=== PATIENT | female | born 1990 | race American Indian/Alaskan Native ===

== ENCOUNTER 2018-06-21 15:58 | Outpatient (CLI) | payer MEDICAID ==
--- NOTE | 2018-06-21 21:12 | Magnetic Resonance Report ---
FINAL REPORT PROCEDURE: MR PELVIS WO/W CON TECHNIQUE: Magnetic resonance imaging of the pelvis was performed using standard sequences before and after the IV injection of paramagnetic contrast. CPT 59315 HISTORY: PELVIC PAIN COMPARISON: No prior studies are available for comparison. FINDINGS: Uterus: Normal. Ovaries and adnexae: There is a 2.2 centimeters cyst in the right ovary. Bladder: Normal. Pelvic musculature: Normal. Free fluid: There is minimal free pelvic fluid. Adenopathy or mass: None. There is edema and enhancement of the left sacral ala and iliac wing along the sacroiliac joint. Sacroiliac joint itself is intact. Possibility of nondisplaced bony injury or early sacroiliitis not excluded. If indicated, CT or nuclear medicine bone scan may be helpful. IMPRESSION: There is a right ovarian cyst. There is nonspecific free pelvic fluid. There is no solid pelvic mass or abscess. Bony and soft tissue structures are within normal limits. There is edema and enhancement of the left sacral ala and iliac wing along the left sacroiliac joint. The left joint itself is intact. Possibility of nondisplaced bony injury or early sacroiliitis not excluded. If indicated, CT or nuclear medicine bone scan may be helpful.
== END 2018-06-21 15:59 | disposition home or self-care (01) ==
LOC: MRI 15:58
PROVIDERS: ATTEND Obstetrics & Gynecology
DX: N83.291 Other ovarian cyst, right side (principal)
CPT/HCPCS: 72197; A9577

== ENCOUNTER 2019-07-22 22:07 | Emergency (ER) | payer MEDICAID ==
[2019-07-22 22:23] VITALS: BP 139/75
--- NOTE | 2019-07-22 22:23 | Event Note ---
ED Screening Note Date of service: 07/22/19 Time: 22:22 ED Screening Note: presents with sore throat and fever x 3 days This initial assessment/diagnostic orders/clinical plan/treatment(s) is/are subject to change based on patients health status, clinical progression and re- assessment by fellow clinical providers in the ED. Further treatment and workup at subsequent clinical providers discretion. Patient/guardian urged not to elope from the ED as their condition may be serious if not clinically assessed and managed. Initial orders include: rapid strep
[2019-07-23] MEDS ORDERED: TRIMOX PO ONE (00:56)
[2019-07-23] MEDS ORDERED: IBUPROFEN PO ONE (00:56)
[2019-07-23] MEDS ORDERED: DECADRON IM ONE (00:56)
--- NOTE | 2019-07-23 00:56 | Emergency Department Report ---
Minor Respiratory - HPI Chief Complaint: Sore Throat Stated Complaint: THROAT PAIN Time Seen by Provider: 07/22/19 22:21 Duration: 2 Days Pain Location: Throat Severity: mild Minor Respiratory: Yes Sore Throat, Yes Able to Tolerate Fluids, Yes Fever, No Rhinorrhea, No Ear Pain, No Cough, No Sick Contacts, No Hemoptysis, No Chest Pain, No Shortness of Breath Other History: 29 YO TO ER WITH SORE THROAT. FEVER ON ARRIVAL. TAKING PO. NON TOXIC. AMBULATORY ED Review of Systems ROS: Stated complaint: THROAT PAIN Other details as noted in HPI Comment: All other systems reviewed and negative ED Past Medical Hx - Past Medical History Previous Medical History?: No - Surgical History Past Surgical History?: Yes Additional Surgical History: c-sec - Family History Family history: no significant - Social History Smoking Status: Never Smoker Substance Use Type: None - Medications Home Medications: Home Medications Medication Instructions Recorded Confirmed Last Taken Type Amoxicillin [Trimox CAP] 500 mg PO TID #30 capsule 07/23/19 Unknown Rx Minor Respiratory Exam - Exam General: Vital signs noted. No distress. Alert and acting appropriately. HEENT: Yes Pharyngeal Erythema, Yes Pharyngeal Exudates, Yes Moist Mucous Membranes, No Rhinorrhea, No Conjuctival Injection Ear: Neither TM Bulge, Neither TM Erythema, Neither EAC Pain, Neither EAC Discharge Neck: Yes Supple, No Adenopathy Lungs: Yes Good Air Exchange, No Wheezes Heart: Yes Regular Abdomen: No Tenderness Skin: No Rash Neurologic: Alert and oriented, no deficits. Musculoskeletal: Unremarkable. ED Course Vital Signs 07/22/19 22:21 Temperature 100.6 F H Pulse Rate 104 H Respiratory 18 Rate Blood Pressure 139/75 O2 Sat by Pulse 98 Oximetry ED Medical Decision Making - Medical Decision Making NO ABSCESS NO LUDWIGS ABC INTACT VSS TAKING PO PHONATING WITH DIFFICULTY AMBULATORY EXUDATES B TONSILS MEDICATED IN ER DC HOME WITH DC PLAN OF CARE AND PCP FOLLOW UP. Vital Signs 07/22/19 22:21 Temperature 100.6 F H Pulse Rate 104 H Respiratory 18 Rate Blood Pressure 139/75 O2 Sat by Pulse 98 Oximetry - Differential Diagnosis SIMPLE URI Critical care attestation.: If time is entered above; I have spent that time in minutes in the direct care of this critically ill patient, excluding procedure time. ED Disposition Clinical Impression: Acute pharyngitis Disposition: DC TO HOME OR SELFCARE Is pt being admited?: No Does the pt Need Aspirin: No Condition: Stable Instructions: Pharyngitis (ED) Additional Instructions: HYDRATE WELL WITH WATER MOTRIN AND TYLENOL FOR PAIN OR FEVER MED ORDERED TODAY UNTIL GONE FOLLOW UP PCP AT THE END OF THE WEEK TO BE SURE YOU ARE GETTING BETTER REFERRAL BELOW Referrals: [facility] [Outside] - 3-5 Days Time of Disposition: 01:08
== END 2019-07-23 01:40 | disposition home or self-care (01) ==
LOC: ED 22:07
DX: J02.9 Acute pharyngitis, unspecified (principal); Z79.899 Other long term (current) drug therapy
CPT/HCPCS: 87116; 87430; 96372; 99283; J1100

== ENCOUNTER 2019-09-27 19:02 | Emergency (ER) | payer SELFPAY ==
[2019-09-27 19:21] VITALS: BP 124/75
--- NOTE | 2019-09-27 19:41 | Event Note ---
ED Screening Note Date of service: 09/27/19 Time: 19:38 ED Screening Note: This is a 29 y.o. F. that presents to the ER with sore throat and abscess to right axilla. Reports sore throat for 3 days and abscess for 1 week. + cough, sore throat, Took nyquil once. This initial assessment/diagnostic orders/clinical plan/treatment(s) is/are subject to change based on patients health status, clinical progression and re- assessment by fellow clinical providers in the ED. Further treatment and workup at subsequent clinical providers discretion. Patient/guardian urged not to elope from the ED as their condition may be serious if not clinically assessed and managed. Initial orders include: ACC for further evaluation. Rapid strep
--- NOTE | 2019-09-27 20:49 | Emergency Department Report ---
HPI - General Chief Complaint: Sore Throat Time Seen by Provider: 09/27/19 19:38 - HPI HPI: This is a 29-year-old female here report that she is having sore throat 3 days white spots to the back of her throat and she gets strep throat a couple times a year. She also reports that she has hydradenitis and that she has a flare up with no drainage. She reports pain to throat and right arm. At 4 out of 10 and sore. Pain to throat is worse with swallowing to arm worse with palpation. She reports some chills but no temperature was taken at home. She says she took some [id number]-[id number] medications home with help her pain a little. Patient says she does have access to primary care and will be able to follow up with [employer] supervisor and primary care. Denies any drooling, cough, difficulty swallowing, hoarseness, wheezing, shortness of breath, neck pain or stiffness, and reports that she has headache on and off that started today. Denies any jax st pain or back pain. ED Past Medical Hx - Past Medical History Previous Medical History?: Yes Additional medical history: hydradenitis - Surgical History Past Surgical History?: Yes Additional Surgical History: c-sec, cerclage - Family History Family history: no significant - Social History Smoking Status: Never Smoker Substance Use Type: None - Medications Home Medications: Home Medications Medication Instructions Recorded Confirmed Last Taken Type Amoxicillin [Trimox CAP] 500 mg PO TID #30 capsule 07/23/19 Unknown Rx Clindamycin [Clindamycin CAP] 300 mg PO Q8H 10 Days #30 cap 09/27/19 Unknown Rx Ibuprofen [Motrin] 800 mg PO Q8HR PRN #12 tablet 09/27/19 Unknown Rx ED Review of Systems ROS: Stated complaint: SORE THROAT/LUMP UNDER (R) ARM Other details as noted in HPI Constitutional: chills. denies: weakness Eyes: denies: eye discharge ENT: throat pain. denies: ear pain, dental pain, congestion Respiratory: denies: cough, shortness of breath, SOB with exertion, SOB at rest, stridor, wheezing Cardiovascular: denies: chest pain, palpitations, dyspnea on exertion, edema, syncope, paroxysmal nocturnal dyspnea Gastrointestinal: denies: abdominal pain, nausea, vomiting Musculoskeletal: denies: back pain, joint swelling, arthralgia Skin: other (says to right armpit). denies: rash Neurological: headache. denies: numbness, paresthesias, abnormal gait, vertigo Physical Exam - Physical Exam Vital Signs: Vital Signs 09/27/19 19:11 Temperature 99.2 F Pulse Rate 101 H Respiratory 18 Rate Blood Pressure 124/75 O2 Sat by Pulse 98 Oximetry Vital Signs 09/27/19 09/27/19 19:11 20:49 Temperature 99.2 F 98.9 F Pulse Rate 101 H 94 H Respiratory 18 Rate Blood Pressure 124/75 O2 Sat by Pulse 98 Oximetry General: This is a 29-year-old female well-nourished well-developed and nontoxic in appearance. Physical Exam: Head: Normocephalic atraumatic. Mouth: Oral mucosa moist, tongue is normal, uvula is midline, no TIE MAKER or drooling, oral airways patent and uvula is midline. Noted pharyngeal erythema with white exudates. Oral airways patent and tongue is normal Lungs: Clear to auscultated bilaterally, no rhonchi wheezes or rales. No use of accessory muscles. Neck: Supple, no tracheal deviation. No C-spine tenderness and full range of motion. Negative stridor and negative crepitus. Positive anterior cervical chain lymphadenopathy CV: S1, S2. Regular rate mild tachycardia 101 Abdomen: Nontender to palpate in all quadrants, normal bowel sounds in all quadrants. No distention. Eyes: Bilateral pupils equal and reactive to light, conjunctival injection or icterus. Bilateral EOM intact Face: Exam except for rash. No bony abnormality noted Skin: Patient with normal skin on exam except she has high jejunitis area to her right arm pain with minimal induration and nonfluctuant. No erythema but tender to palpate and proximal right axilla with small opening. Extremity: No cce. + 2 pulses in all extremities, no neurovascular compromise. Mood: Normal mood and behavior Neurological: No focal neurological deficit. She is able to ambulate without any difficulties. Normal gait, speech is clear fluid, she is alert and oriented 3, no motor or sensory deficits. Body Four View: 1 - Patient with multiple coalescent area to right arm pain with minimal darlin ration tender to palpate without any erythema or proximal end of right axilla with small opening. No fluctuance noted. ED Course Vital Signs 09/27/19 19:11 Temperature 99.2 F Pulse Rate 101 H Respiratory 18 Rate Blood Pressure 124/75 O2 Sat by Pulse 98 Oximetry Vital Signs 09/27/19 09/27/19 19:11 20:49 Temperature 99.2 F 98.9 F Pulse Rate 101 H 94 H Respiratory 18 Rate Blood Pressure 124/75 O2 Sat by Pulse 98 Oximetry - Reevaluation(s) Reevaluation #1: 09/27/19 21:22 Patient was given clindamycin 600 mg by mouth this will cover his I Hidradenitis and strep throat. Based on, Centor criteria patient with headache, fever, enlarged lymph nodes and oropharynx erythema with exudate. She was also given Motrin 800 mg for pain with relief and her vital signs are improved. ED Medical Decision Making - Medical Decision Making This is a 29-year-old female found to have exudative pharyngitis and based on Centor criteria will be treated for strep. She is also found to have chronic history of Hidradenitis which she says she has a flareup but she does not have any fluctuance to right axilla. She was started on clindamycin which will cover both and given Motrin for pain. 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 She reports that her tet anus vaccine is up-to-date at about 3 years. I instructed her to apply warm compresses to right axilla 3-4 times a day and she has opening at the proximal end so once areas is soft they will drain. She voiced understanding of diagnosis and treatment plan and need to follow up with carbon paper coating supervisor and primary care. Critical care attestation.: If time is entered above; I have spent that time in minutes in the direct care of this critically ill patient, excluding procedure time. ED Disposition Clinical Impression: Exudative pharyngitis, Right axillary hidradenitis Disposition: TO HOME OR SELFCARE Is pt being admited?: No Does the pt Need Aspirin: No Condition: Stable Instructions: Strep Throat (ED) Additional Instructions: Please apply warm compresses to area to right at the last 3-4 times a day to facilitate softening of affected area and drainage. Take medication as prescribed Please follow up with carbon paper coating supervisor and primary care as instructed If you condition worsens, return to the emergency room Increase your fluid intake to 2-3 L of fluid daily and practice good hand hygiene Prescriptions: Clindamycin [Clindamycin CAP] 300 mg PO Q8H 10 Days #30 cap Ibuprofen [Motrin] 800 mg PO Q8HR PRN #12 tablet PRN Reason: PAIN Referrals: PRIMARY CARE, [Primary Care Provider] - 3-5 Days Forms: Work/School Release Form(ED)
[2019-09-27] MEDS ORDERED: IBUPROFEN 800 MG TAB PO ONE (20:51)
[2019-09-27] MEDS ORDERED: CLINDAMYCIN 300 MG CAP PO ONE (20:51)
== END 2019-09-27 21:57 | disposition home or self-care (01) ==
LOC: ED 19:02
DX: L73.2 Hidradenitis suppurativa (principal); J02.9 Acute pharyngitis, unspecified; Z79.899 Other long term (current) drug therapy

== ENCOUNTER 2020-09-13 19:36 | Emergency (ER) | payer MEDICAID ==
[2020-09-13 20:44] VITALS: BP 120/63
--- NOTE | 2020-09-13 20:46 | Event Note ---
ED Screening Note Date of service: 09/13/20 Time: 20:45 ED Screening Note: Pt c/o SOB and fatigue x 3 weeks denies cough or fever This initial assessment/diagnostic orders/clinical plan/treatment(s) is/are subject to change based on patients health status, clinical progression and re-assessment by fellow clinical providers in the ED. Further treatment and workup at subsequent clinical providers discretion. Patient/guardian urged not to elope from the ED as their condition may be serious if not clinically assessed and managed. Initial orders include: CXR labs
[2020-09-13 21:02] LABS: Basophils # (Auto) 0.1 K/mm3 (0.0-0.1); Basophils % (Auto) 0.7 % (0.0-1.8); Eosinophils # (Auto) 0.2 K/mm3 (0.0-0.4); Eosinophils % (Auto) 2.3 % (0.0-4.3); Hematocrit 36.6 % (30.3-42.9); Hemoglobin 12.5 gm/dl (10.1-14.3); Lymphocytes # (Auto) 3.5 K/mm3 (1.2-5.4); Lymphocytes % (Auto) 32.1 % (13.4-35.0); Mean Corpuscular HGB Conc 34 % (30-34); Mean Corpuscular Volume 88 fl (79-97); Monocytes # (Auto) 0.9 K/mm3 (0.0-0.8); Monocytes % (Auto) 8.7 % (0.0-7.3); Platelet Count 334 K/mm3 (140-440); Red Blood Count 4.15 M/mm3 (3.65-5.03); Red Cell Distribution Width 13.6 % (13.2-15.2)
[2020-09-13 21:18] LABS: Alanine Aminotransferase 22 units/L (7-56); Albumin 4.3 g/dL (3.9-5); Blood Urea Nitrogen 8 mg/dL (7-17); Calcium 9.8 mg/dL (8.4-10.2); Hemolysis Index 57
[2020-09-13 21:26] LABS: BUN/Creatinine Ratio 11
--- NOTE | 2020-09-13 22:09 | XRay Report ---
CHEST 2 VIEWS INDICATION / CLINICAL INFORMATION: shortness of breath. COMPARISON: 04/21/2020 FINDINGS: SUPPORT DEVICES: None. HEART / MEDIASTINUM: No significant abnormality. LUNGS / PLEURA: No significant pulmonary or pleural abnormality. No pneumothorax. ADDITIONAL FINDINGS: No significant additional findings. IMPRESSION: 1. No acute findings. Signer Name: Quinten Celestin MD Signed: 09/13/2020 10:04 PM Workstation Name: [id number]
--- NOTE | 2020-09-14 00:38 | Emergency Department Report ---
ED General Adult HPI - General Chief complaint: Dyspnea/Respdistress Stated complaint: SHORTNESS OF BREATH, BILATERAL EAR IRRITATION Time Seen by Provider: 09/13/20 20:44 Source: patient Mode of arrival: Ambulatory Limitations: No Limitations - History of Present Illness Initial comments: 30-year-old F [place] female no significant past medical history presents emerged department complaining of a 2 to 3-week history of head congestion ears feeling clogged nonproductive cough and new leave of shortness of breath over the past couple days with lethargy emergency department visit today. Was no palpitations. No hemoptysis no hematemesis no hematochezia. No fevers, chills, sweats no wheezing. No lower extremity swelling no exertional dyspnea no orthopnea. States that she notices more head pressure and lightheadedness when her ears feel for Pap Improves with: none Worsens with: none Associated Symptoms: denies other symptoms Treatments Prior to Arrival: none - Related Data Previous Rx's Medication Instructions Recorded Last Taken Type Amoxicillin [Trimox CAP] 500 mg PO TID #30 capsule 07/23/19 Unknown Rx Clindamycin [Clindamycin CAP] 300 mg PO Q8H 10 Days #30 cap 09/27/19 Unknown Rx Ibuprofen [Motrin] 800 mg PO Q8HR PRN #12 tablet 09/27/19 Unknown Rx Meclizine [Antivert] 25 mg PO TID PRN #30 tablet 04/21/20 Unknown Rx Benzonatate [Tessalon Perles] 100 mg PO Q8HR #20 capsule 09/14/20 Unknown Rx Fexofenadine/Pseudoephedrine 1 each PO BID #14 tab.er.12h 09/14/20 Unknown Rx [Liudmila-D 12 Hour Tablet] predniSONE [Deltasone] 20 mg PO QDAY #5 tab 09/14/20 Unknown Rx Allergies Allergy/AdvReac Type Severity Reaction Status Date / Time No Known Allergies Allergy Unverified 06/21/18 16:00 ED Review of Systems ROS: Stated complaint: SHORTNESS OF BREATH, BILATERAL EAR IRRITATION Other details as noted in HPI Comment: All other systems reviewed and negative ED Past Medical Hx - Past Medical History Previous Medical History?: No Additional medical history: hydradenitis - Surgical History Past Surgical History?: Yes Additional Surgical History: c-sec, cerclage - Social History Smoking Status: Never Smoker Substance Use Type: None - Medications Home Medications: Home Medications Medication Instructions Recorded Confirmed Last Taken Type Amoxicillin [Trimox CAP] 500 mg PO TID #30 capsule 07/23/19 Unknown Rx Clindamycin [Clindamycin CAP] 300 mg PO Q8H 10 Days #30 cap 09/27/19 Unknown Rx Ibuprofen [Motrin] 800 mg PO Q8HR PRN #12 tablet 09/27/19 Unknown Rx Meclizine [Antivert] 25 mg PO TID PRN #30 tablet 04/21/20 Unknown Rx Benzonatate [Tessalon Perles] 100 mg PO Q8HR #20 capsule 09/14/20 Unknown Rx Fexofenadine/Pseudoephedrine 1 each PO BID #14 tab.er.12h 09/14/20 Unknown Rx [Liudmila-D 12 Hour Tablet] predniSONE [Deltasone] 20 mg PO QDAY #5 tab 09/14/20 Unknown Rx ED Physical Exam - General Limitations: No Limitations General appearance: alert, in no apparent distress - Head Head exam: Present: atraumatic, normocephalic - Eye Eye exam: Present: normal appearance, PERRL, EOMI Pupils: Present: normal accommodation - ENT ENT exam: Present: mucous membranes moist. Absent: TM's normal bilaterally (Effusion behind the tympanic membranes bilaterally) - Neck Neck exam: Present: normal inspection - Respiratory Respiratory exam: Present: normal lung sounds bilaterally. Absent: respiratory distress - Cardiovascular Cardiovascular Exam: Present: regular rate, normal rhythm. Absent: systolic murmur, diastolic murmur, rubs, gallop - GI/Abdominal GI/Abdominal exam: Present: soft, normal bowel sounds - Extremities Exam Extremities exam: Present: normal inspection - Back Exam Back exam: Present: normal inspection - Neurological Exam Neurological exam: Present: alert, oriented X3 - Psychiatric Psychiatric exam: Present: normal affect, normal mood - Skin Skin exam: Present: warm, dry, intact, normal color. Absent: rash ED Course Vital Signs 09/13/20 20:41 Temperature 99.5 F Pulse Rate 69 Respiratory 18 Rate Blood Pressure 120/63 O2 Sat by Pulse 100 Oximetry ED Medical Decision Making - Lab Data Result diagrams: 09/13/20 20:53 09/13/20 20:53 Lab Results 10/19/20 10/19/20 10/19/20 Range/Units 20:53 20:53 20:53 WBC 10.8 (4.5-11.0) K/mm3 RBC 4.15 (3.65-5.03) M/mm3 Hgb 12.5 (10.1-14.3) gm/dl Hct 36.6 (30.3-42.9) % MCV 88 (79-97) fl MCH 30 (28-32) pg MCHC 34 (30-34) % RDW 13.6 (13.2-15.2) % Plt Count 334 (140-440) K/mm3 Lymph % (Auto) 32.1 (13.4-35.0) % [place] % (Auto) 8.7 H (0.0-7.3) % Eos % (Auto) 2.3 (0.0-4.3) % Baso % (Auto) 0.7 (0.0-1.8) % Lymph # (Auto) 3.5 (1.2-5.4) K/mm3 [place] # (Auto) 0.9 H (0.0-0.8) K/mm3 Eos # (Auto) 0.2 (0.0-0.4) K/mm3 Baso # (Auto) 0.1 (0.0-0.1) K/mm3 Seg Neutrophils % 56.2 (40.0-70.0) % Seg Neutrophils # 6.1 (1.8-7.7) K/mm3 Sodium 142 (137-145) mmol/L Potassium 4.0 (3.6-5.0) mmol/L Chloride 104.5 (98-107) mmol/L Carbon Dioxide 25 (22-30) mmol/L Anion Gap 17 mmol/L BUN 8 (7-17) mg/dL Creatinine 0.7 (0.6-1.2) mg/dL Estimated GFR > 60 ml/min BUN/Creatinine Ratio 11 % Glucose 103 H (65-100) mg/dL Calcium 9.8 (8.4-10.2) mg/dL Total Bilirubin 0.30 (0.1-1.2) mg/dL AST 26 (5-40) units/L ALT 22 (7-56) units/L Alkaline Phosphatase 66 (35-129) units/L Total Protein 7.9 (6.3-8.2) g/dL Albumin 4.3 (3.9-5) g/dL Albumin/Globulin Ratio 1.2 % HCG, Qual Negative (Negative) - Radiology Data Radiology results: report reviewed [facility] [address] [place] [address] XRay Report Signed Patient: RUFINA THOMAS MR#: [id number] : 1990 Acct:[id number] Age/Sex: 30 / F ADM Date: 09/13/20 Loc: ED Attending Dr: Ordering Physician: DUNG KOENIG Date of Service: 09/13/20 Procedure(s): XR chest routine 2V Accession Number(s): [id number] cc: DUNG KOENIG Fluoro Time In Minutes: CHEST 2 VIEWS INDICATION / CLINICAL INFORMATION: shortness of breath. COMPARISON: 04/21/2020 FINDINGS: SUPPORT DEVICES: None. HEART / MEDIASTINUM: No significant abnormality. LUNGS / PLEURA: No significant pulmonary or pleural abnormality. No pneumothorax. ADDITIONAL FINDINGS: No significant additional findings. IMPRESSION: 1. No acute findings. Signer Name: Naomi Celestin MD Signed: 09/13/2020 10:04 PM Workstation Name: [id number] Transcribed By: RH Dictated By: NAOMI CELESTIN III Electronically Authenticated By: NAOMI CELESTIN III Signed Date/Time: 09/13/202203 DD/ 03 TD/TT: - Medical Decision Making This patient presents with dyspnea most likely secondary to allergies and bro nchitis. Differential diagnosis includes asthma, bronchitis, pleuritic pulmonary issue, viral syndrome. Presentation not consistent with acute cardiac etiologies to include ACS , CHF, pericardial effusion/tamponade. Presentation not consistent with acute respiratory etiologies to include acute pulmonary embolism ( PERC negative), pneumothorax, asthma, COPD exacerbation, infectious etiology such as pneumonia. The presentation also not consistent with known cardiopulmonary causes to include toxic syndrome, metabolic etiology such as acidemia or electrolyte derangements, sepsis, neurologic causes. Critical care attestation.: If time is entered above; I have spent that time in minutes in the direct care of this critically ill patient, excluding procedure time. ED Disposition Clinical Impression: Middle ear effusion, SOB (shortness of breath) Disposition: DC-01 TO HOME OR SELFCARE Is pt being admited?: No Does the pt Need Aspirin: No Condition: Stable Instructions: Dyspnea (ED), Dizziness (ED), Allergic Rhinitis (ED), Cold Symptoms (ED) Referrals: PRIMARY CARE,MD [Primary Care Provider] - 3-5 Days
== END 2020-09-14 01:10 | disposition home or self-care (01) ==
LOC: ED 19:36
DX: H93.8X3 Other specified disorders of ear, bilateral (principal); R06.02 Shortness of breath; Z79.899 Other long term (current) drug therapy; Z98.890 Other specified postprocedural states
CPT/HCPCS: 36415; 71046; 80053; 84703; 85025

== ENCOUNTER 2020-10-20 02:47 | Emergency (ER) | payer MEDICAID ==
--- NOTE | 2020-10-20 08:20 | Emergency Department Report ---
ED General Adult HPI - General Chief complaint: Headache Stated complaint: HEADACHE Time Seen by Provider: 10/20/20 08:17 Source: patient Mode of arrival: Ambulatory Limitations: No Limitations - History of Present Illness Initial comments: Patient is a 30-year-old female presents emergency room with complaints of left ear pressure last night. She denies any pain in the ear but just feels like there is pressure. She states that occasionally she gets a vertigo sensation. She states that she also has headaches. She states that she has had these sy mptoms intermittently since March 2020. She states that she frequently gets fluid buildup behind the ears and that is what causes her symptoms. She has not seen a ENT doctor or neurologist. She denies any nausea, vomiting, diarrhea, fever, numbness, weakness, vision changes, neck stiffness, any other symptoms. No past medical history. No allergies to medications. - Related Data Previous Rx's Medication Instructions Recorded Last Taken Type Amoxicillin [Trimox CAP] 500 mg PO TID #30 capsule 07/23/19 Unknown Rx Clindamycin [Clindamycin CAP] 300 mg PO Q8H 10 Days #30 cap 09/27/19 Unknown Rx Ibuprofen [Motrin] 800 mg PO Q8HR PRN #12 tablet 09/27/19 Unknown Rx Benzonatate [Tessalon Perles] 100 mg PO Q8HR #20 capsule 09/14/20 Unknown Rx Fexofenadine/Pseudoephedrine 1 each PO BID #14 tab.er.12h 09/14/20 Unknown Rx [Liudmila-D 12 Hour Tablet] predniSONE [Deltasone] 20 mg PO QDAY #5 tab 09/14/20 Unknown Rx Butalb/Acetaminophen/Caffeine 1 cap PO Q8HR PRN #10 cap 10/20/20 Unknown Rx [Fioricet 50-300-40 mg CAP] Meclizine [Antivert] 25 mg PO Q8HR PRN #30 tablet 10/20/20 Unknown Rx Prednisone [predniSONE 10 mg 10 mg PO .TAPER #1 tab.ds.pk 10/20/20 Unknown Rx (6-Day Pack, 21 Tabs)] Pseudoephedrine ER [Sudafed 12 Hr] 120 mg PO BID #14 tablet.er 10/20/20 Unknown Rx Allergies Allergy/AdvReac Type Severity Reaction Status Date / Time No Known Allergies Allergy Unverified 06/21/18 16:00 ED Review of Systems ROS: Stated complaint: HEADACHE Other details as noted in HPI Comment: All other systems reviewed and negative ED Past Medical Hx - Past Medical History Additional medical history: hydradenitis - Surgical History Additional Surgical History: c-sec, cerclage - Social History Smoking Status: Never Smoker - Medications Home Medications: Home Medications Medication Instructions Recorded Confirmed Last Taken Type Amoxicillin [Trimox CAP] 500 mg PO TID #30 capsule 07/23/19 Unknown Rx Clindamycin [Clindamycin CAP] 300 mg PO Q8H 10 Days #30 cap 09/27/19 Unknown Rx Ibuprofen [Motrin] 800 mg PO Q8HR PRN #12 tablet 09/27/19 Unknown Rx Benzonatate [Tessalon Perles] 100 mg PO Q8HR #20 capsule 09/14/20 Unknown Rx Fexofenadine/Pseudoephedrine 1 each PO BID #14 tab.er.12h 09/14/20 Unknown Rx [Liudmila-D 12 Hour Tablet] predniSONE [Deltasone] 20 mg PO QDAY #5 tab 09/14/20 Unknown Rx Butalb/Acetaminophen/Caffeine 1 cap PO Q8HR PRN #10 cap 10/20/20 Unknown Rx [Fioricet 50-300-40 mg CAP] Meclizine [Antivert] 25 mg PO Q8HR PRN #30 tablet 10/20/20 Unknown Rx Prednisone [predniSONE 10 mg 10 mg PO .TAPER #1 tab.ds.pk 10/20/20 Unknown Rx (6-Day Pack, 21 Tabs)] Pseudoephedrine ER [Sudafed 12 Hr] 120 mg PO BID #14 tablet.er 10/20/20 Unknown Rx ED Physical Exam - General Limitations: No Limitations General appearance: alert, in no apparent distress - Head Head exam: Present: atraumatic, normocephalic - Eye Eye exam: Present: normal appearance, PERRL, EOMI. Absent: scleral icterus, conjunctival injection, nystagmus, periorbital swelling, periorbital tenderness Pupils: Present: normal accommodation - ENT ENT exam: Present: normal orophraynx, mucous membranes moist, other (clear serous fluid behind the bilateral TMs, no erythema of the TMs or canals) - Neck Neck exam: Present: full ROM. Absent: meningismus - Respiratory Respiratory exam: Present: normal lung sounds bilaterally. Absent: respiratory distress, wheezes, rales, rhonchi, stridor, chest wall tenderness, accessory muscle use, decreased breath sounds, prolonged expiratory - Cardiovascular Cardiovascular Exam: Present: regular rate, normal rhythm, normal heart sounds. Absent: systolic murmur, diastolic murmur, rubs, gallop - Neurological Exam Neurological exam: Present: alert, oriented X3, CN II-XII intact, normal gait, other (normal finger to nose, normal heel to carlos, 5/5 muscle strength in the BUE/BLE, sensation intact throughout, no focal neuro deficit). Absent: motor sensory deficit - Psychiatric Psychiatric exam: Present: normal affect, normal mood - Skin Skin exam: Present: warm, dry, intact ED Course Vital Signs 10/20/20 10/20/20 03:03 08:52 Temperature 98.7 F 97.7 F Pulse Rate 86 80 Respiratory 18 16 Rate Blood Pressure 139/85 Blood Pressure 119/74 [Right] O2 Sat by Pulse 100 100 Oximetry ED Medical Decision Making - Medical Decision Making Patient is a 30-year-old female presents emergency room with complaints of left ear pressure last night. She denies any pain in the ear but just feels like there is pressure. She states that occasionally she gets a vertigo sensation. She states that she also has headaches. She states that she has had these symptoms intermittently since March 2020. She states that she frequently gets fluid buildup behind the ears and that is what causes her symptoms. She has not seen a ENT doctor or neurologist. She denies any nausea, vomiting, diarrhea, fever, numbness, weakness, vision changes, neck stiffness, any other symptoms. No past medical history. No allergies to medications. vss. on exam: clear serous fluid behind the bilateral TMs, no erythema of the TMs or canals. Examination appears consistent with serous otitis media, no signs of infection. She has no focal neuro deficits on exam. Symptoms are likely related to the serous otitis. Patient given prescription for meclizine, Sudafed, Fioricet, prednisone. Patient will be given ENT and neurology referral. Advised patient Please take medication as prescribed. Increase your water intake. Decrease your salt intake. Follow-up with your primary care doctor. Follow-up with the ENT doctor. Follow-up with a neurologist. Return to emergency room for new or worsening symptoms. Critical care attestation.: If time is entered above; I have spent that time in minutes in the direct care of this critically ill patient, excluding procedure time. ED Disposition Clinical Impression: Serous otitis media Qualifiers: Chronicity: acute Laterality: bilateral Recurrence: recurrent Qualified Code(s): H65.06 - Acute serous otitis media, recurrent, bilateral Headache Qualifiers: Headache type: unspecified Headache chronicity pattern: episodic headache Intractability: not intractable Qualified Code(s): R51.9 - Headache, unspecified Disposition: DC- TO HOME OR SELFCARE Is pt being admited?: No Does the pt Need Aspirin: No Condition: Stable Additional Instructions: Please take medication as prescribed. Increase your water intake. Decrease your salt intake. Follow-up with your primary care doctor. Follow-up with the ENT doctor. Follow-up with a neurologist. Return to emergency room for new or worsening symptoms. Prescriptions: Meclizine [Antivert] 25 mg PO Q8HR PRN #30 tablet PRN Reason: Vertigo Butalb/Acetaminophen/Caffeine [Fioricet 50-300-40 mg CAP] 1 cap PO Q8HR PRN #10 cap PRN Reason: headache Prednisone [predniSONE 10 mg (6-Day Pack, 21 Tabs)] 10 mg PO .TAPER #1 tab.ds.pk Pseudoephedrine ER [Sudafed 12 Hr] 120 mg PO BID #14 tablet.er Referrals: PERFECTO TORRES MD [Primary Care Provider] - 2-3 Days JORGITO FLORES MD [Referring] - 2-3 Days [facility] [Provider Group] - 2-3 Days [facility] [Provider Group] - 2-3 Days [facility] [Provider Group] - 2-3 Days Time of Disposition: 08:31 Print Language: INDONESIAN
[2020-10-20 08:53] VITALS: BP 119/74
== END 2020-10-20 08:53 | disposition home or self-care (01) ==
LOC: ED 02:47
DX: H65.06 Acute serous otitis media, recurrent, bilateral (principal); R51.9 Headache, unspecified
CPT/HCPCS: 99282

== ENCOUNTER 2020-11-02 08:01 | Emergency (ER) | payer MEDICAID ==
[2020-11-02 09:25] LABS: Blood Urea Nitrogen 9 mg/dL (7-17); Calcium 8.7 mg/dL (8.4-10.2); Hemolysis Index 1
[2020-11-02 09:26] LABS: Hemoglobin 9.2 gm/dl (10.1-14.3); Mean Corpuscular HGB Conc 35 % (30-34); Mean Corpuscular Volume 88 fl (79-97); Platelet Count 420 K/mm3 (140-440); Red Blood Count 2.95 M/mm3 (3.65-5.03)
[2020-11-02 09:49] LABS: BUN/Creatinine Ratio 13
[2020-11-02] MEDS ORDERED: SODIUM CHLORIDE 0.9% 500 ML 500 ML IV ONE (10:38)
[2020-11-02 11:02] LABS: Hematocrit 29.3 % (30.3-42.9); Hemoglobin 9.7 gm/dl (10.1-14.3); Mean Corpuscular HGB Conc 33 % (30-34); Mean Corpuscular Volume 89 fl (79-97); Platelet Count 488 K/mm3 (140-440); Red Blood Count 3.28 M/mm3 (3.65-5.03); Red Cell Distribution Width 14.2 % (13.2-15.2)
--- NOTE | 2020-11-02 11:17 | XRay Report ---
CHEST 2 VIEWS INDICATION / CLINICAL INFORMATION: possible Sepsis. COMPARISON: Chest 2 views from 09/13/2020. FINDINGS: SUPPORT DEVICES: None. HEART / MEDIASTINUM: No significant abnormality. LUNGS / PLEURA: No significant pulmonary or pleural abnormality. No pneumothorax. ADDITIONAL FINDINGS: No significant additional findings. IMPRESSION: 1. No acute abnormality of the chest. Signer Name: Slade Ratliff MD Signed: 11/02/2020 11:12 AM Workstation Name: [id number]
[2020-11-02 11:18] LABS: Alanine Aminotransferase 49 units/L (7-56); Albumin 3.7 g/dL (3.9-5); Blood Urea Nitrogen 9 mg/dL (7-17); Calcium 9.1 mg/dL (8.4-10.2); Hemolysis Index 1; INR 1.09 (0.87-1.13)
[2020-11-02 11:20] LABS: BUN/Creatinine Ratio 15
[2020-11-02 11:21] LABS: Band Neutrophils # (Manual) 0.5 K/mm3; Basophils % (Manual) 0 % (0.0-1.8); Total Cells Counted 100
[2020-11-02 11:22] LABS: Ovalocytes Few; Platelet Estimate Consistent w Auto
[2020-11-02 11:47] LABS: Band Neutrophils # (Manual) 0.5 K/mm3; Basophils % (Manual) 0 % (0.0-1.8); Eosinophils % (Manual) 0 % (0.0-4.3); Hypochromasia Few; Ovalocytes Few; Platelet Estimate Consistent w Auto; Total Cells Counted 100
--- NOTE | 2020-11-02 12:56 | Emergency Department Report ---
ED General Adult HPI - General Chief complaint: GI Bleed Stated complaint: BLOOD IN STOOL Time Seen by Provider: 11/02/20 12:43 Source: patient, RN notes reviewed Mode of arrival: Ambulatory Limitations: No Limitations - History of Present Illness Initial comments: The patient was evaluated in the emergency department for symptoms described in the history of present illness. He/she was evaluated in the context of the global COVID-19 pandemic, which necessitated consideration that the patient might be at risk for infection with the virus that causes COVID-19. Institutional protocols and algorithms that pertain to the evaluation of patients at risk for COVID-19 are in a state of rapid change based on information released by regulatory bodies including the CDC and federal and state organizations. These policies and algorithms were followed during the patient's care in the emergency department. Please note that these policies, procedures and recommendations changed on a rapid basis. During the entire history and physical examination, I am chaperoned by nurse Sienna Hercules The patient is a 30-year-old female. This patient is not known to myself previously. She states that she is not . 6 days ago, she went to [place], and had an elective [place] butt lift, and was discharged to follow-up locally. She presents to the ER with 2 complaints. Her first complaint is bright red blood per rectum. It is painless. Its been going on since yesterday. She denies new headache, new neck pain, and currently has no sore throat, chest pain, or exertional shortness of breath. She denies hematemesis and black tarry stool. She does not take any blood thinners that she is aware of. She has mild gluteal discomfort, consistent with her postoperative discomfort, but does not feel like her pain is worse or different today. Apparently, her surgeon in [place] prescribed ciprofloxacin, and clindamycin prophylactically which she has been taking compliantly. She states she does not have a local surgeon to follow-up with. In addition, she also complains of draining from a supraumbilical wound. It is relatively painless. She denies fevers, chills, vomiting, rigors, urinary symptoms. She also states that she is not . -: Sudden Location: abdomen Radiation: non-radiation Severity scale (0 -10): 2 Consistency: intermittent Improves with: none Worsens with: none - Related Data Previous Rx's Medication Instructions Recorded Last Taken Type Clindamycin [Clindamycin CAP] 300 mg PO Q8H 10 Days #30 cap 09/27/19 Unknown Rx Fexofenadine/Pseudoephedrine 1 each PO BID #14 tab.er.12h 09/14/20 Unknown Rx [Liudmila-D 12 Hour Tablet] predniSONE [Deltasone] 20 mg PO QDAY #5 tab 09/14/20 Unknown Rx Meclizine [Antivert] 25 mg PO Q8HR PRN #30 tablet 10/20/20 Unknown Rx Pantoprazole [Protonix TAB] 20 mg PO QDAY #30 tablet. 11/02/20 Unknown Rx Allergies Allergy/AdvReac Type Severity Reaction Status Date / Time No Known Allergies Allergy Unverified 06/21/18 16:00 ED Review of Systems ROS: Stated complaint: BLOOD IN STOOL Other details as noted in HPI Constitutional: denies: fever, malaise Eyes: denies: vision change ENT: denies: congestion Respiratory: denies: cough Cardiovascular: denies: chest pain Gastrointestinal: hematochezia. denies: nausea, vomiting, diarrhea, constipation, hematemesis, melena Genitourinary: denies: dysuria Musculoskeletal: myalgia Skin: lesions Neurological: denies: weakness Hematological/Lymphatic: denies: easy bleeding ED Past Medical Hx - Past Medical History Previous Medical History?: No Additional medical history: hydradenitis - Surgical History Past Surgical History?: Yes Additional Surgical History: C section. [place] Butt lift 2020 - Social History Smoking Status: Never Smoker - Medications Home Medications: Home Medications Medication Instructions Recorded Confirmed Last Taken Type Clindamycin [Clindamycin CAP] 300 mg PO Q8H 10 Days #30 cap 09/27/19 Unknown Rx Fexofenadine/Pseudoephedrine 1 each PO BID #14 tab.er.12h 09/14/20 Unknown Rx [Liudmila-D 12 Hour Tablet] predniSONE [Deltasone] 20 mg PO QDAY #5 tab 09/14/20 Unknown Rx Meclizine [Antivert] 25 mg PO Q8HR PRN #30 tablet 10/20/20 Unknown Rx Pantoprazole [Protonix TAB] 20 mg PO QDAY #30 tablet. 11/02/20 Unknown Rx ED Physical Exam - General Limitations: No Limitations General appearance: alert, anxious, obese - Head Head exam: Present: atraumatic, normocephalic - Eye Eye exam: Present: normal appearance, EOMI. Absent: nystagmus - ENT ENT exam: Present: normal exam, normal orophraynx, mucous membranes moist, normal external ear exam - Neck Neck exam: Present: normal inspection, full ROM. Absent: tenderness, meningismus - Respiratory Respiratory exam: Present: normal lung sounds bilaterally. Absent: respiratory distress, wheezes, rales, rhonchi, stridor, decreased breath sounds - Cardiovascular Cardiovascular Exam: Present: normal rhythm, tachycardia, normal heart sounds. Absent: systolic murmur, diastolic murmur, rubs, gallop - GI/Abdominal GI/Abdominal exam: Present: soft, other (Serous fluid leaking from anterior abdominal wall.). Absent: distended, tenderness, guarding, rebound, rigid, pulsatile mass - Rectal Rectal exam: Present: normal inspection, normal rectal tone, heme (-) stool, other (Chaperoned by Sienna Bazzi). Absent: heme (+) stool, black stool, bloody stool, fecal impaction, hemorrhoids, tenderness - Extremities Exam Extremities exam: Present: normal inspection, full ROM, other (2+ pulses noted in the bilateral upper and lower extremities. There is no palpable cord. negative Homans sign. Muscular compartments are soft. The pelvis is stable.). Absent: pedal edema, calf tenderness - Back Exam Back exam: Present: normal inspection, full ROM. Absent: tenderness, CVA tenderness (R), CVA tenderness (L), paraspinal tenderness, vertebral tenderness - Neurological Exam Neurological exam: Present: alert, oriented X3, other (No facial droop. Tongue midline. Extraocular movements intact bilaterally. Facial sensation intact to light touch in V1, V2, V3 distribution bilaterally. 5 and a 5 strength in 4 extremities. Sensation intact to light touch in 4 extremities.). Absent: motor sensory deficit - Psychiatric Psychiatric exam: Present: normal affect, normal mood - Skin Skin exam: Present: warm, dry, intact, normal color. Absent: rash ED Course Vital Signs 11/02/20 11/02/20 11/02/20 08:20 12:46 12:47 Temperature 98.0 F Pulse Rate 115 H Respiratory 18 18 Rate Blood Pressure 116/69 Blood Pressure [Right] O2 Sat by Pulse 98 99 99 Oximetry 11/02/20 11/02/20 11/02/20 12:49 13:14 13:16 Temperature Pulse Rate 100 H Respiratory 18 Rate Blood Pressure 126/68 126/68 Blood Pressure 126/68 [Right] O2 Sat by Pulse 100 100 99 Oximetry 11/02/20 11/02/20 13:49 15:11 Temperature Pulse Rate 98 H 100 H Respiratory 18 18 Rate Blood Pressure Blood Pressure 123/67 [Right] O2 Sat by Pulse 100 100 Oximetry - Reevaluation(s) Reevaluation #1: 11/02/20 13:22 Differential diagnosis, including but not limited to: Diverticulosis, angiodysplasia, internal hemorrhoids, reactive leukocytosis, postoperative seroma Assessment and plan: 30-year-old female, who is afebrile, with reassuring vital signs, with resolved tachycardia, with painless rectal bleeding, not present on my exam, and complaint of serous discharge which is essentially painless. Leukocytosis is appreciated, uncertain of stress reaction. Her wounds do not appear to be superinfected. Abdomen soft and benign. Blood cultures were ordered prior to my personal evaluation. I do not suspect bacteremia at this time. I do appreciate that her hemoglobin/hematocrit appear to be lesser than on prior values. Patient amenable to CT scan of the abdomen pelvis. We will start with fluids, and obtain CT scan of the abdomen pelvis. The patient states that she is not . After results of diagnostic studies, will discuss with gastroenterology, and general surgery on-call. 11/02/20 15:46 The patient is reassessed. She continues to rest on her abdomen comfortably, playing and texting on her cellular phone. She is not in any acute distress at this time. Contacted general surgeon on-call, Dr. Kennedy, and gastroenterology on-call, Dr. Deluca. Have discussed the patient's history, physical, imaging studies and pertinent laboratory studies. We are all in agreement that leukocytosis is likely a stress reaction, likely secondary to recent surgery. The patient's history, physical are not consistent with acute invasive bacteremic illness. Slight decrease in hemoglobin/hematocrit are reviewed and appreciated, this is likely secondary to the patient's recent surgical intervention. This is also the recommendation from the aforementioned general surgeon, Dr. Kennedy. Dr. Deluca agrees to see the patient in close outpatient follow-up. Patient will be instructed to avoid NSAIDs, and be started on Protonix empirically. Dr. Kennedy advises that the patient should follow-up with her surgeon of record in [place], or with an outpatient plastic surgeon for ideal cosmetic repair. She does indicate that the patient could follow-up with her in the office, if she so desires, however, repair of the seroma would be less than cosmetically ideal. I extensively discussed these recommendations with the patient, who verbalized understanding. ED Medical Decision Making - Lab Data Result diagrams: 11/02/20 10:40 11/02/20 10:40 Vital Signs 11/02/20 11/02/20 11/02/20 08:20 12:46 12:47 Temperature 98.0 F Pulse Rate 115 H Respiratory 18 18 Rate Blood Pressure 116/69 Blood Pressure [Right] O2 Sat by Pulse 98 99 99 Oximetry 11/02/20 11/02/20 11/02/20 12:49 13:14 13:16 Temperature Pulse Rate 100 H Respiratory 18 Rate Blood Pressure 126/68 126/68 Blood Pressure 126/68 [Right] O2 Sat by Pulse 100 100 99 Oximetry Lab Results 11/02/20 11/02/20 11/02/20 Range/Units 08:51 08:51 10:40 WBC 23.4 H 24.5 H (4.5-11.0) K/mm3 RBC 2.95 L 3.28 L (3.65-5.03) M/mm3 Hgb 9.2 L 9.7 L (10.1-14.3) gm/dl Hct 26.0 L 29.3 L (30.3-42.9) % MCV 88 89 (79-97) fl MCH 31 30 (28-32) pg MCHC 35 H 33 (30-34) % RDW 14.0 14.2 (13.2-15.2) % Plt Count 420 488 H (140-440) K/mm3 Add Manual Diff Complete Complete Total Counted 100 100 Seg Neuts % (Manual) 89.0 H 89.0 H (40.0-70.0) % Band Neutrophils % 2.0 2.0 % Lymphocytes % (Manual) 3.0 L 6.0 L (13.4-35.0) % Reactive Lymphs % (Man) 0 0 % Monocytes % (Manual) 5.0 1.0 (0.0-7.3) % Eosinophils % (Manual) 1.0 0 (0.0-4.3) % Basophils % (Manual) 0 0 (0.0-1.8) % Metamyelocytes % 0 2.0 % Myelocytes % 0 0 % Promyelocytes % 0 0 % Blast Cells % 0 0 % Nucleated RBC % Not Reportable Not Reportable Seg Neutrophils # Man 20.8 H 21.8 H (1.8-7.7) K/mm3 Band Neutrophils # 0.5 0.5 K/mm3 Lymphocytes # (Manual) 0.7 L 1.5 (1.2-5.4) K/mm3 Abs React Lymphs (Man) 0.0 0.0 K/mm3 Monocytes # (Manual) 1.2 H 0.2 (0.0-0.8) K/mm3 Eosinophils # (Manual) 0.2 0.0 (0.0-0.4) K/mm3 Basophils # (Manual) 0.0 0.0 (0.0-0.1) K/mm3 Metamyelocytes # 0.0 0.5 K/mm3 Myelocytes # 0.0 0.0 K/mm3 Promyelocytes # 0.0 0.0 K/mm3 Blast Cells # 0.0 0.0 K/mm3 WBC Morphology Not Reportable Not Reportable Hypersegmented Neuts Not Reportable Not Reportable Hyposegmented Neuts Not Reportable Not Reportable Hypogranular Neuts Not Reportable Not Reportable Smudge Cells Not Reportable Not Reportable Toxic Granulation Not Reportable Not Reportable Toxic Vacuolation Not Reportable Not Reportable Dohle Bodies Not Reportable Not Reportable Pelger-Huet Anomaly Not Reportable Not Reportable Bebe Rods Not Reportable Not Reportable Platelet Estimate Consistent w auto Consistent w auto Clumped Platelets Not Reportable Not Reportable Plt Clumps, EDTA Not Reportable Not Reportable Large Platelets Not Reportable Not Reportable Giant Platelets Not Reportable Not Reportable Platelet Satelliting Not Reportable Not Reportable Plt Morphology Comment Not Reportable Not Reportable RBC Morphology Not Reportable Not Reportable Dimorphic RBCs Not Reportable Not Reportable Polychromasia Few Few Hypochromasia Not Reportable Few Poikilocytosis Not Reportable Not Reportable Anisocytosis Not Reportable Not Reportable Microcytosis Not Reportable Not Reportable Macrocytosis Not Reportable Not Reportable Spherocytes Not Reportable Not Reportable Pappenheimer Bodies Not Reportable Not Reportable Sickle Cells Not Reportable Not Reportable Target Cells Not Reportable Not Reportable Tear Drop Cells Not Reportable Not Reportable Ovalocytes Few Few Helmet Cells Not Reportable Not Reportable Kumar-Sneads Bodies Not Reportable Not Reportable [place] Rings Not Reportable Not Reportable [place] Cells Not Reportable Not Reportable Bite Cells Not Reportable Not Reportable Crenated Cell Not Reportable Not Reportable Elliptocytes Not Reportable Not Reportable Acanthocytes (Spur) Not Reportable Not Reportable Rouleaux Not Reportable Not Reportable Hemoglobin C Crystals Not Reportable Not Reportable Schistocytes Not Reportable Not Reportable Malaria parasites Not Reportable Not Reportable Manuel Bodies Not Reportable Not Reportable Hem Pathologist Commnt No No PT (12.2-14.9) Sec. INR (0.87-1.13) VBG pH (7.320-7.420) Sodium 137 (137-145) mmol/L Potassium 3.6 (3.6-5.0) mmol/L Chloride 103.2 (98-107) mmol/L Carbon Dioxide 24 (22-30) mmol/L Anion Gap 13 mmol/L BUN 9 (7-17) mg/dL Creatinine 0.7 (0.6-1.2) mg/dL Estimated GFR > 60 ml/min BUN/Creatinine Ratio 13 % Glucose 227 H (65-100) mg/dL Lactic Acid (0.7-2.0) mmol/L Calcium 8.7 (8.4-10.2) mg/dL Total Bilirubin (0.1-1.2) mg/dL AST (5-40) units/L ALT (7-56) units/L Alkaline Phosphatase (35-129) units/L Total Protein (6.3-8.2) g/dL Albumin (3.9-5) g/dL Albumin/Globulin Ratio % 11/02/20 11/02/20 11/02/20 Range/Units 10:40 10:40 10:40 WBC (4.5-11.0) K/mm3 RBC (3.65-5.03) M/mm3 Hgb (10.1-14.3) gm/dl Hct (30.3-42.9) % MCV (79-97) fl MCH (28-32) pg MCHC (30-34) % RDW (13.2-15.2) % Plt Count (140-440) K/mm3 Add Manual Diff Total Counted Seg Neuts % (Manual) (40.0-70.0) % Band Neutrophils % % Lymphocytes % (Manual) (13.4-35.0) % Reactive Lymphs % (Man) % Monocytes % (Manual) (0.0-7.3) % Eosinophils % (Manual) (0.0-4.3) % Basophils % (Manual) (0.0-1.8) % Metamyelocytes % % Myelocytes % % Promyelocytes % % Blast Cells % % Nucleated RBC % Seg Neutrophils # Man (1.8-7.7) K/mm3 Band Neutrophils # K/mm3 Lymphocytes # (Manual) (1.2-5.4) K/mm3 Abs React Lymphs (Man) K/mm3 Monocytes # (Manual) (0.0-0.8) K/mm3 Eosinophils # (Manual) (0.0-0.4) K/mm3 Basophils # (Manual) (0.0-0.1) K/mm3 Metamyelocytes # K/mm3 Myelocytes # K/mm3 Promyelocytes # K/mm3 Blast Cells # K/mm3 WBC Morphology Hypersegmented Neuts Hyposegmented Neuts Hypogranular Neuts Smudge Cells Toxic Granulation Toxic Vacuolation Dohle Bodies Pelger-Huet Anomaly Bebe Rods Platelet Estimate Clumped Platelets Plt Clumps, EDTA Large Platelets Giant Platelets Platelet Satelliting Plt Morphology Comment RBC Morphology Dimorphic RBCs Polychromasia Hypochromasia Poikilocytosis Anisocytosis Microcytosis Macrocytosis Spherocytes Pappenheimer Bodies Sickle Cells Target Cells Tear Drop Cells Ovalocytes Helmet Cells Kumar-Sneads Bodies [place] Rings Pina Cells Bite Cells Crenated Cell Elliptocytes Acanthocytes (Spur) Rouleaux Hemoglobin C Crystals Schistocytes Malaria parasites Manuel Bodies Hem Pathologist Commnt PT 14.0 (12.2-14.9) Sec. INR 1.09 (0.87-1.13) VBG pH (7.320-7.420) Sodium 137 (137-145) mmol/L Potassium 3.5 L (3.6-5.0) mmol/L Chloride 102.7 (98-107) mmol/L Carbon Dioxide 25 (22-30) mmol/L Anion Gap 13 mmol/L BUN 9 (7-17) mg/dL Creatinine 0.6 (0.6-1.2) mg/dL Estimated GFR > 60 ml/min BUN/Creatinine Ratio 15 % Glucose 157 H (65-100) mg/dL Lactic Acid 1.10 (0.7-2.0) mmol/L Calcium 9.1 (8.4-10.2) mg/dL Total Bilirubin 0.70 (0.1-1.2) mg/dL AST 26 (5-40) units/L ALT 49 (7-56) units/L Alkaline Phosphatase 81 (35-129) units/L Total Protein 7.4 (6.3-8.2) g/dL Albumin 3.7 L (3.9-5) g/dL Albumin/Globulin Ratio 1.0 % 11/02/20 Range/Units 10:40 WBC (4.5-11.0) K/mm3 RBC (3.65-5.03) M/mm3 Hgb (10.1-14.3) gm/dl Hct (30.3-42.9) % MCV (79-97) fl MCH (28-32) pg MCHC (30-34) % RDW (13.2-15.2) % Plt Count (140-440) K/mm3 Add Manual Diff Total Counted Seg Neuts % (Manual) (40.0-70.0) % Band Neutrophils % % Lymphocytes % (Manual) (13.4-35.0) % Reactive Lymphs % (Man) % Monocytes % (Manual) (0.0-7.3) % Eosinophils % (Manual) (0.0-4.3) % Basophils % (Manual) (0.0-1.8) % Metamyelocytes % % Myelocytes % % Promyelocytes % % Blast Cells % % Nucleated RBC % Seg Neutrophils # Man (1.8-7.7) K/mm3 Band Neutrophils # K/mm3 Lymphocytes # (Manual) (1.2-5.4) K/mm3 Abs React Lymphs (Man) K/mm3 Monocytes # (Manual) (0.0-0.8) K/mm3 Eosinophils # (Manual) (0.0-0.4) K/mm3 Basophils # (Manual) (0.0-0.1) K/mm3 Metamyelocytes # K/mm3 Myelocytes # K/mm3 Promyelocytes # K/mm3 Blast Cells # K/mm3 WBC Morphology Hypersegmented Neuts Hyposegmented Neuts Hypogranular Neuts Smudge Cells Toxic Granulation Toxic Vacuolation Dohle Bodies Pelger-Huet Anomaly Bebe Rods Platelet Estimate Clumped Platelets Plt Clumps, EDTA Large Platelets Giant Platelets Platelet Satelliting Plt Morphology Comment RBC Morphology Dimorphic RBCs Polychromasia Hypochromasia Poikilocytosis Anisocytosis Microcytosis Macrocytosis Spherocytes Pappenheimer Bodies Sickle Cells Target Cells Tear Drop Cells Ovalocytes Helmet Cells Kumar-Sneads Bodies [place] Rings Pina Cells Bite Cells Crenated Cell Elliptocytes Acanthocytes (Spur) Rouleaux Hemoglobin C Crystals Schistocytes Malaria parasites Manuel Bodies Hem Pathologist Commnt PT (12.2-14.9) Sec. INR (0.87-1.13) VBG pH 7.411 (7.320-7.420) Sodium (137-145) mmol/L Potassium (3.6-5.0) mmol/L Chloride (98-107) mmol/L Carbon Dioxide (22-30) mmol/L Anion Gap mmol/L BUN (7-17) mg/dL Creatinine (0.6-1.2) mg/dL Estimated GFR ml/min BUN/Creatinine Ratio % Glucose (65-100) mg/dL Lactic Acid (0.7-2.0) mmol/L Calcium (8.4-10.2) mg/dL Total Bilirubin (0.1-1.2) mg/dL AST (5-40) units/L ALT (7-56) units/L Alkaline Phosphatase (35-129) units/L Total Protein (6.3-8.2) g/dL Albumin (3.9-5) g/dL Albumin/Globulin Ratio % - Radiology Data Radiology results: report reviewed, image reviewed Print Report Referring Physician: IRMA DACOSTA Patient Name: RUFINA THOMAS Date of : 1990 Sex: Female Report Date: 2020-11-02 Report Status: Finalized Findings [facility] [address] [place] [address] Cat Scan Report Signed Patient: RUFINA THOMAS MR#: [id number] : Acct:[id number] Age/Sex: 30 / F ADM Date: 11/02/20 Loc: ED Attending Dr: Ordering Physician: IRMA DACOSTA MD Date of Service: 11/02/20 Procedure(s): CT abdomen pelvis w con Accession Number(s): [id number] cc: IRMA DACOSAT MD CT ABDOMEN AND PELVIS WITH CONTRAST INDICATION / CLINICAL INFORMATION: Unspecified leaking wound, GI bleed, bloody stools. TECHNIQUE: Axial CT images were obtained through the abdomen and pelvis after 100 cc Omnipaque [address] scans at this location are performed using CT dose reduction for ALARA by means of automated exposure control. COMPARISON: None available. FINDINGS: LOWER CHEST: No significant abnormality. LIVER: No significant a bnormality. GALLBLADDER: Cholelithiasis and sludge is noted without evidence of acute cholecystitis. BILE DUCTS: No significant abnormality. PANCREAS: No significant abnormality. SPLEEN: No significant abnormality. ADRENALS: No significant abnormality. RIGHT KIDNEY / URETER: No significant abnormality. LEFT KIDNEY / URETER: No significant abnormality. STOMACH / SMALL BOWEL: No significant abnormality. COLON: No significant abnormality. APPENDIX: No significant abnormality. PERITONEUM: No free fluid. No free air. No fluid collection. LYMPH NODES: No significant adenopathy. AORTA / ARTERIES: No significant abnormality. IVC / VEINS: No significant abnormality. URINARY BLADDER: No significant abnormality. REPRODUCTIVE ORGANS: No significant abnormality. ADDITIONAL FINDINGS: Generalized subcutaneous edema is noted with scattered subcutaneous air throughout the abdomen. SKELETAL SYSTEM: No sig nificant abnormality. IMPRESSION: 1. No acute abnormality. 2. Additional findings as above. Signer Name: Slade Ratliff MD Signed: 11/02/2020 2:49 PM Workstation Name: [id number] Transcribed By: MN Dictated By: Slade Ratliff MD Electronically Authenticated By: Slade Ratliff MD Signed Date/Time: 11/02/20 1449 DD/ 45 TD/TT: Critical care attestation.: If time is entered above; I have spent that time in minutes in the direct care of this critically ill patient, excluding procedure time. ED Disposition Clinical Impression: Postoperative seroma, History of rectal bleeding Disposition: DC-01 TO HOME OR SELFCARE Is pt being admited?: No Does the pt Need Aspirin: No Condition: Stable Additional Instructions: Recommend that patient follow-up with her primary care doctor within 1 week for repeat CBC/blood count check. Cultures were sent today, and results to be available in the next 3 to 5 days. Please have a primary care doctor contact medical records department to obtain culture results. Patient had slightly lower blood counts today, then on previous evaluations, likely secondary to her recent cosmetic procedure. Patient had an elevated white blood cell count today, which is likely a stress reaction to her recent surgical intervention. The patient may follow-up with her primary care doctor, or follow-up with local primary care doctor, such as Dr. Sue Recommend that patient maintain pressure dressing and corset in place. Recommend that patient follow-up with a plastic surgeon or surgeon who has plastics expertise as soon as possible, or within the next week. If patient so desires, she may follow-up with our general surgeon on-call, Dr. Kennedy, however, please be advised that the surgeon does not have plastics training, and repair of anterior abdominal wall seroma may result in a cosmetic outcome that is not in accordance with the patient's aesthetic considerations. Recommend the patient follow-up with her outpatient plastic surgeon in [facility], or with a local plastic surgeon for ideal cosmetic outcome. Patient isrrael davis look up online, [employer], will contact her private insurance company to find out which plastic surgeons are in network or available for consultation. Recommend that patient avoid consumption of Motrin, ibuprofen, Naprosyn, Aleve, heavy and spicy foods. Recommend that patient follow-up with a [place] stroenterologist, such as Dr. Deluca, within the next week. Recommend that patient not take metformin medication for the next 2 days, if patient takes this medication. Please return to the emergency room right away with new pain, worsened pain, migration of pain, projectile vomiting, change in mental status, confusion, inability to tolerate liquid feeds, new, worsened or different symptoms not pr esent on the initial emergency room evaluation. Prescriptions: Pantoprazole [Protonix TAB] 20 mg PO QDAY #30 tablet. Referrals: MALU DELUCA MD [Staff Physician] - 3-5 Days CRAIG KENNEDY MD [Staff Physician] - 3-5 Days STACY SUE MD [Staff Physician] - 3-5 Days Forms: Accompanied Note
[2020-11-02] MEDS ORDERED: SODIUM CHLORIDE 0.9% 1000 ML 1,000 ML ONE (13:19)
[2020-11-02 13:47] LABS: Bilirubin,Urine NEG (Negative); Blood,Urine MOD (Negative); Color,Urine Amber (Yellow); Mucus,Urine 2+ /HPF; Urobilinogen,Urine < 2.0 mg/dL (<2.0)
[2020-11-02 14:22] LABS: HCG Qualitative,Urine Negative (Negative)
--- NOTE | 2020-11-02 14:54 | Cat Scan Report ---
CT ABDOMEN AND PELVIS WITH CONTRAST INDICATION / CLINICAL INFORMATION: Unspecified leaking wound, GI bleed, bloody stools. TECHNIQUE: Axial CT images were obtained through the abdomen and pelvis after 100 cc Omnipaque [address] scans at this location are performed using CT dose reduction for ALARA by means of automated exposure control. COMPARISON: None available. FINDINGS: LOWER CHEST: No significant abnormality. LIVER: No significant abnormality. GALLBLADDER: Cholelithiasis and sludge is noted without evidence of acute cholecystitis. BILE DUCTS: No significant abnormality. PANCREAS: No significant abnormality. SPLEEN: No significant abnormality. ADRENALS: No significant abnormality. RIGHT KIDNEY / URETER: No significant abnormality. LEFT KIDNEY / URETER: No significant abnormality. STOMACH / SMALL BOWEL: No significant abnormality. COLON: No significant abnormality. APPENDIX: No significant abnormality. PERITONEUM: No free fluid. No free air. No fluid collection. LYMPH NODES: No significant adenopathy. AORTA / ARTERIES: No significant abnormality. IVC / VEINS: No significant abnormality. URINARY BLADDER: No significant abnormality. REPRODUCTIVE ORGANS: No significant abnormality. ADDITIONAL FINDINGS: Generalized subcutaneous edema is noted with scattered subcutaneous air througho ut the abdomen. SKELETAL SYSTEM: No significant abnormality. IMPRESSION: 1. No acute abnormality. 2. Additional findings as above. Signer Name: Slade Ratliff MD Signed: 11/02/2020 2:49 PM Workstation Name: [id number]
[2020-11-02 16:17] VITALS: BP 123/76
== END 2020-11-02 16:24 | disposition home or self-care (01) ==
LOC: ED 08:01
DX: L76.34 Postprocedural seroma of skin and subcutaneous tissue following other procedure (principal); K62.5 Hemorrhage of anus and rectum; Z98.890 Other specified postprocedural states; Z79.899 Other long term (current) drug therapy
CPT/HCPCS: 36415; 71046; 74177; 80048; 80053; 81001; 81025; 82140; 82805; 85007; 85025; 85610; 87040; 87086; 96360; 99285; J7030; Q9967